=== PATIENT | male | born 1995 | race Caucasian/White ===

== ENCOUNTER 2016-08-21 14:56 | Emergency (ER) | payer OTHER ==
[2016-08-21] MEDS ORDERED: Famotidine 20 MG/2 ML SDV IVPUSH ONE (15:08)
[2016-08-21] MEDS ORDERED: Sodium Chloride 0.9% 1,000 ML IV ONE (15:08)
[2016-08-21] MEDS ORDERED: diphenhydrAMINE 50 MG/ML SDV IVPUSH ONE (15:08)
[2016-08-21] MEDS ORDERED: methylPREDNISolone Sodium Succinate 125 MG/2 ML SDV IVPUSH STA (15:08)
--- NOTE | 2016-08-21 15:14 | EDM.PDOC ---
[id number]"Breaking out from something" Time Seen by Provider: 08/21/16 14:59 Source of Information: Reports: Patient History Limitations: Reports: No limitations - History of Present Illness INITIAL COMMENTS - FREE TEXT/NARRATIVE: This patient is a 21 year old male that presents to the ER. Patient reports he was cleaning out the shop and cleaning out trash can there when he noticed itching and rash. Patient does not recall anything specific that he came into contact with. Patient reports doing this about 1:30pm today, the developed red hive like rash to chest, abdomen, BUE, BLE and it itches. Patient reports he took two pills of Benadryl at 1:30pm and the hives have decreased, but skin remains red and itches. Patient denies degroot, dizziness, n, v, d, f, cp, soa, airway closure, throat swelling, acid reflux sensation, or any pain. Patient is conversing in full and complete sentences without difficulty. Airway intact. Symptom Onset Date: 08/21/16 Symptom Onset Time: 13:30 Location, Skin: Reports: chest, abdomen, upper extremity, right, upper extremity , left, lower extremity, right, lower extremity, left Characteristics: Reports: other (hive like ) Severity: moderate Place of Occurrence: home Associated Symptoms: Reports: rash. Denies: confusion, headaches, seizure, shortness of breath, syncope, weakness, chest pain, cough, sputum, fever/chills , diaphoresis, malaise, loss of appetite, nausea/vomiting Improves with: Reports: Medication (Benadryl) Suspected Etiology: Reports: unknown Treatments [employer]: Reports: Other (see below) (Benadryl) - Related Data Allergies/ADRs: Allergies Allergy/AdvReac Type Severity Reaction Status Date / Time No Known Allergies Allergy Verified 08/21/16 15:24 Home Meds: Home Meds diphenhydrAMINE [Benadryl] 50 mg PO ASDIRECTED PRN 08/21/16 [History] Past Medical History Other Musculoskeletal History: both arms wrist finger leg Social & Family History - Tobacco Use Smoking Status *Q: Former Smoker Years of Tobacco use: 3 Packs/Tins Daily: 0.5 Used Tobacco, but Quit: Yes Month Tobacco Last Used: 02/10/2015 Second Hand Smoke Exposure: Yes - Recreational Drug Use Recreational Drug Use: No ED ROS ALLERGIC REACTION - Review of Systems Review Of Systems: See Below Constitutional: Reports: no symptoms HEENT: Reports: No symptoms Respiratory: Reports: No Symptoms Cardiovascular: Reports: No symptoms Endocrine: Reports: no symptoms GI/Abdominal: Reports: No symptoms : Reports: no symptoms Musculoskeletal: Reports: no symptoms Skin: Reports: rash, erythema, urticaria, other (pruritis chest, abdomen, BUE, BLE. ) Neurological: Reports: No Symptoms Psychiatric: Reports: No symptoms Hematologic/Lymphatic: Reports: no symptoms Immunologic: Reports: no symptoms ED EXAM GENERAL NO PERIP PULSE - Physical Exam Exam: See Below Exam Limited By: No limitations General Appearance: alert, WD/WN, no apparent distress Eye Exam: bilateral eye: normal inspection, PERRL Ears: normal external exam, normal canal, hearing grossly normal, normal TMs Nose: normal inspection, normal mucosa, no blood Throat/Mouth: Normal inspection, Normal lips, Normal teeth, Normal gums, Normal oropharynx, Normal voice, No airway compromise. No: Inflammation Head: atraumatic, normocephalic Neck: normal inspection, supple, non-tender, full range of motion Respiratory/Chest: no respiratory distress, lungs clear, normal breath sounds, no accessory muscle use Cardiovascular: normal peripheral pulses, regular rate, rhythm, no edema, no gallop, no JVD, no murmur, no rub GI/Abdominal: soft, non tender Back Exam: normal inspection, full range of motion Extremities: normal range of motion, non-tender, no pedal edema, normal capillary refill Neurological: alert, oriented Psychiatric: normal affect, normal mood Skin Exam: Warm, Dry, Intact, Rash (hive like rash with errythema to BLE, BLE, Chest, Abdomen. ) Lymphatic: no adenopathy Course - Vital Signs Last Recorded V/S: Last Vital Signs Temp 99.4 F 08/21/16 15:20 Pulse 71 08/21/16 15:20 Resp 20 08/21/16 15:20 BP 150/83 H 08/21/16 15:20 Pulse Ox 98 08/21/16 15:20 - Orders/Labs/Meds Meds: Medications Discontinued Medications Generic Name Dose Route Start Last Admin Trade Name Freq PRN Reason Stop Dose Admin Diphenhydramine HCl 25 mg 08/21/16 15:08 08/21/16 15:16 Benadryl IVPUSH 08/21/16 15:09 25 mg ONETIME ONE Administration Famotidine 20 mg 08/21/16 15:08 08/21/16 15:16 Pepcid IVPUSH 08/21/16 15:09 20 mg ONETIME ONE Administration Sodium Chloride 1,000 mls @ 1,000 mls/hr 08/21/16 15:08 08/21/16 15:16 Normal Saline IV 08/21/16 16:07 1,000 mls/hr .BOLUS ONE Administration Methylprednisolone Sodium Succinate 125 mg 08/21/16 15:08 08/21/16 15:16 Solu-Medrol IVPUSH 08/21/16 15:09 125 mg NOW STA Administration Departure - Departure Time of Disposition: 15:50 Disposition: Home, Self-Care 01 Condition: good Clinical Impression: Hives Allergic reaction Qualifiers: Encounter type: initial encounter Qualified Code(s): T78.40XA - Allergy, unspecified, initial encounter Instructions: Hives Referrals: PCP,None [Primary Care Provider] - Forms: ED Department Discharge Additional Instructions: Followup with your primary care provider Return to the ER for worsening of condition or any emergent concerns Increase fluids Benadryl every 6 hours as needed for rash and itching - Assessment/Plan Plan: PLEASE SEE RN NOTE FOR PFSH.
[2016-08-21 15:24] VITALS: BP 150/83
== END 2016-08-21 16:22 | disposition home or self-care (01) ==
LOC: CC.ED 14:56
DX: L50.0 Allergic urticaria (principal); Z87.891 Personal history of nicotine dependence; Z90.49 Acquired absence of other specified parts of digestive tract
CPT/HCPCS: 96361; 96374; 96375; 99283; J1200; J2930; J7030; S0028